=== PATIENT | male | born 1955 | race Caucasian/White ===

== ENCOUNTER 2023-11-28 12:06 | Outpatient (CLI) | payer OTHER, SELFPAY | END 2023-11-28 12:07 | disposition home or self-care (01) | PROVIDERS: PCP Family Medicine; Visit Provider Family Medicine | DX: E78.00 Pure hypercholesterolemia, unspecified (principal); Z13.228 Encounter for screening for other metabolic disorders; Z12.5 Encounter for screening for malignant neoplasm of prostate | CPT/HCPCS: 80053; 80061; G0103 ==

== ENCOUNTER 2023-12-08 10:58 | Outpatient (CLI) | payer OTHER, SELFPAY ==
--- NOTE | 2023-12-08 11:38 | W.ANESCHARGE ---
Anesthesia Charges Start Date/Time Anesthesia Start Date: 12/08/23 Anesthesia Start Time: 11:41 Stop Date/Time Anesthesia Stop Date: 12/08/23 Anesthesia Stop Time: 12:08
--- NOTE | 2023-12-08 12:10 | W.ANESCHARGE ---
Anesthesia Charges Start Date/Time Anesthesia Start Date: 12/08/23 Anesthesia Start Time: 11:41 Stop Date/Time Anesthesia Stop Date: 12/08/23 Anesthesia Stop Time: 12:08
== END 2023-12-08 10:59 | disposition home or self-care (01) ==
PROVIDERS: Visit Provider Internal Medicine
DX: Z12.11 Encounter for screening for malignant neoplasm of colon (principal); K63.5 Polyp of colon
CPT/HCPCS: 00811; 45380; 88305; J2704

== ENCOUNTER 2024-01-16 11:01 | Outpatient (CLI) | payer OTHER, SELFPAY ==
--- NOTE | 2024-01-16 11:30 | CRLHL7_ITS ---
For Patients: As a result of the Century Cures Act, medical imaging exams and procedure reports are released immediately into your electronic medical record. You may view this report before your referring provider. If you have questions, please contact your health care provider. INDICATION: Lung cancer screening. High-risk patient. TECHNIQUE: Low-dose lung cancer screening non-contrast CT chest. Dose reduction techniques were used. COMPARISON: None. FINDINGS: NODULES: Few small calcified and noncalcified sub 6 millimeter pulmonary nodules. For example, 2 millimeter right upper lobe calcified granuloma (series 3, image 36) and 2 millimeter noncalcified subpleural nodule in the right upper lobe (series 3, image 34) LUNGS AND PLEURA: Minimal emphysema. Mild biapical fibrosis. MEDIASTINUM: Normal. CORONARY ARTERY CALCIFICATION: None. LIMITED UPPER ABDOMEN: Normal. MUSCULOSKELETAL: Mild thoracic spondylosis. IMPRESSION: 1. ACR Lung-RADS category 2. Benign. Based on imaging features or indolent behavior. 2. Management: Recommend annual lung cancer screening with low-dose CT in 12 months. Please note that all CT scans at this facility use dose modulation, iterative reconstruction, and/or weight-based dosing when appropriate to reduce radiation dose to as low as reasonably achievable. Dictated by Davion Alvarez MD @ 01/17/2024 8:07:33 AM (Electronically Signed)
--- NOTE | 2024-01-16 11:45 | CRLHL7_ITS ---
For Patients: As a result of the Century Cures Act, medical imaging exams and procedure reports are released immediately into your electronic medical record. You may view this report before your referring provider. If you have questions, please contact your health care provider. US ABDOMINAL AORTA CLINICAL HISTORY: Abdominal aortic aneurysm screening. COMPARISON: None. TECHNIQUE: The abdominal aorta and iliac arteries were examined with grayscale ultrasound, color flow and Doppler spectral analysis. Bypass grafts and stents may be evaluated per exam specific protocol. Vessel size, peak systolic velocity (PSV) and velocity ratios if applicable, were obtained and documented at sites per exam specific protocol. FINDINGS: Aneurysmal dilatation of the proximal abdominal aorta measuring 3.2 x 3.2 cm. The bilateral common iliac arteries are normal in caliber. Entire aorta visualized: Yes. AP cm Width cm PROXIMAL AO 3.2 3.2 MID AO 2.8 2.7 DISTAL AO 2.1 2.1 RIGHT LANETTE 1.1 1.2 LEFT LANETTE 1.3 1.3 Aneurysm Location: Supra-renal. AAA: Yes. AP: 3.2 cm. Trans: 3.2 cm. Lon.1 cm. IMPRESSION: Proximal abdominal aortic aneurysm measuring 3.2 cm. Edwin Sal M.D. [email or web address] SP/Dictated by: Edwin Sal MD @ 01/16/2024 1:25:00 PM (Electronically Signed)
== END 2024-01-16 11:02 | disposition home or self-care (01) ==
PROVIDERS: PCP Family Medicine; Visit Provider Family Medicine
DX: Z12.2 Encounter for screening for malignant neoplasm of respiratory organs (principal); F17.210 Nicotine dependence, cigarettes, uncomplicated; I71.40 Abdominal aortic aneurysm, without rupture, unspecified
CPT/HCPCS: 71271; 76706

== ENCOUNTER 2025-01-17 10:38 | Outpatient (CLI) | payer OTHER, SELFPAY ==
--- NOTE | 2025-01-17 11:00 | CRLHL7_ITS ---
For Patients: As a result of the Century Cures Act, medical imaging exams and procedure reports are released immediately into your electronic medical record. You may view this report before your referring provider. If you have questions, please contact your health care provider. INDICATION: Lung cancer screening. History of smoking. TECHNIQUE: Low-dose lung cancer screening non-contrast CT chest. Dose reduction techniques were used. COMPARISON: None FINDINGS: NODULES: Multiple bilateral pulmonary nodules are present measuring up to 3.7 millimeters with the exception of the lung apices where there are right apical subpleural nodules measuring up to 6.1 millimeters. LUNGS AND PLEURA: Right apical pleural-parenchymal scarring. COPD/emphysema. MEDIASTINUM: No adenopathy. CORONARY ARTERY CALCIFICATION: Mild. LIMITED UPPER ABDOMEN: Unremarkable. MUSCULOSKELETAL: No fracture. IMPRESSION: Multiple bilateral pulmonary nodules particularly in the right apical subpleural space measuring up to 6.1 millimeters. LUNG-RADS CATEGORY: 3: Probably benign. RADIOLOGIST RECOMMENDATION: Low-dose CT chest in 6 months. Please note that all CT scans at this facility use dose modulation, iterative reconstruction, and/or weight-based dosing when appropriate to reduce radiation dose to as low as reasonably achievable. Dictated by Kj Falcon MD @ 01/17/2025 11:23:48 AM (Electronically Signed)
== END 2025-01-17 10:39 | disposition home or self-care (01) ==
LOC: CT 10:39
PROVIDERS: PCP Family Medicine; Visit Provider Family Medicine
DX: Z12.2 Encounter for screening for malignant neoplasm of respiratory organs (principal); R91.8 Other nonspecific abnormal finding of lung field; Z72.0 Tobacco use
CPT/HCPCS: 71271

== ENCOUNTER 2025-01-21 10:55 | Outpatient (CLI) | payer OTHER, SELFPAY | END 2025-01-21 10:56 | disposition home or self-care (01) | LOC: NFLDREF 01-25 10:55 | PROVIDERS: PCP Family Medicine; Referring Provider Family Medicine; Visit Provider Family Medicine | DX: E78.00 Pure hypercholesterolemia, unspecified (principal); Z12.5 Encounter for screening for malignant neoplasm of prostate | CPT/HCPCS: 80061; G0103 ==

== ENCOUNTER 2025-07-22 10:42 | Outpatient (CLI) | payer OTHER, SELFPAY ==
--- NOTE | 2025-07-22 11:00 | CRLHL7_ITS ---
For Patients: As a result of the Century Cures Act, medical imaging exams and procedure reports are released immediately into your electronic medical record. You may view this report before your referring provider. If you have questions, please contact your health care provider. INDICATION: Six-month follow-up nodules TECHNIQUE: Low-dose lung cancer screening non-contrast CT chest. Dose reduction techniques were used. COMPARISON: 01/17/2025 FINDINGS: NODULES: Stable subpleural nodules in the right apex measuring up to 6 millimeters. LUNGS AND PLEURA: Biapical pleural parenchymal scarring with paraseptal emphysematous changes. MEDIASTINUM: No adenopathy. CORONARY ARTERY CALCIFICATION: Mild. LIMITED UPPER ABDOMEN: Unremarkable. MUSCULOSKELETAL: Unremarkable. IMPRESSION: Stable right apical subpleural nodules. LUNG-RADS CATEGORY: 2: Benign. RADIOLOGIST RECOMMENDATION: Continue annual screening, if eligible, with low-dose CT chest in 12 months. Please note that all CT scans at this facility use dose modulation, iterative reconstruction, and/or weight-based dosing when appropriate to reduce radiation dose to as low as reasonably achievable. Dictated by Kj Falcon MD @ 07/22/2025 12:25:38 PM (Electronically Signed)
== END 2025-07-22 10:43 | disposition home or self-care (01) ==
LOC: CT 10:43
PROVIDERS: PCP Family Medicine; Visit Provider Family Medicine
DX: R91.8 Other nonspecific abnormal finding of lung field (principal)
CPT/HCPCS: 71250